=== PATIENT | female | born 1950 | race Caucasian/White ===

== ENCOUNTER → 2024-02-28 08:34 | Outpatient (REF) | payer MEDICARE, SELFPAY | LOC: RAD 08:34 | PROVIDERS: ATTENDING PHYSICIAN Family Medicine | DX: R11.0 Nausea (principal); R07.1 Chest pain on breathing | CPT/HCPCS: 71046; 76700 ==

== ENCOUNTER 2025-02-12 23:06 | Observation (INO) | payer MEDICARE, SELFPAY ==
[2025-02-12 21:52] VITALS: BMI 34.2
[2025-02-12 21:53] LABS: Glucose - Point of Care 99 mg/dl (70-99)
--- NOTE | 2025-02-12 21:59 | ED.CVA ---
History of Present Illness
General
Chief Complaint: CVA/TIA Symptoms
Source: patient
Exam Limitations: none
Time Seen by Provider: 02/12/25 21:59
Onset of Stroke Symptoms
Onset of symptoms known: Yes
Date of onset of symptoms: 02/12/25
Time of onset of symptoms: 21:00
Time pt last seen normal is known: Yes
Date last time pt seen normal: 02/12/25
Time last time pt seen normal: 21:00
History of Present Illness
History of Present Illness:
74-year-old female with history of hyperlipidemia on atorvastatin and baby aspirin presents with states about 1 hour prior to arrival the patient developed blurry vision slurred speech and dizziness. She does have a history of vertigo. The
symptoms were more pronounced at the onset however per the he states that she seems more improved at this time. She was cooking dinner when this started. She denies chest pain unilateral numbness or weakness. She was brought back from
triage and called a stroke alert out of triage.
Phy Exam
Physical Exam
Physical Exam:
General: Well-appearing female no acute respiratory distress
HEENT: Normocephalic face is symmetric tongue is midline uvula midline
Heart: Regular rate and rhythm
Lungs: Clear no wheeze
Neurologic exam: Alert and oriented. No drift on exam finger-nose intact good sensation upper and lower extremities. No dysarthria or aphasia. She does tend to repeat herself not knowing why she is here. Visual pittman intact.
Extremities: No cyanosis or edema
Skin: Warm no rash
Course
Orders/Labs/Results
Orders:
Orders
02/12/25 21:52
Electrocardiogram (*1) Urgent
Reason for Study: Other
Other Reason for Exam: Possible Stroke
Bedside Glucose- Treatment ONCE
Cardiac Monitoring- Treatment ONCE
EKG- Treatment ONCE
IV Insert/Care/Rem.- Treatment PRN
Vital Signs As Directed
Frequency: Other
Weight As Directed
Frequency: Once
Comment: ZERO STRETCHER SCALE FOR ACCURATE WEIGHT
O2 Therapy [RESP] Urgent
Titrate/Wean O2 to maintain O2 sat greater than (%): 93
Special Instructions: MAINTAIN CONTINUOUS O2 SATS > OR = 93%
02/12/25 21:56
CT HEAD STROKE ALERT W/o Cont Stat
Comment:
Reason For Exam: slurred speech, dizziness, unsteady gait
CT HEAD/NECK ANG STROKE ALERT Stat
Comment:
Reason For Exam: slurred speech, dizziness, unsteady gait
02/12/25 21:58
Alcohol Urgent
Complete Blood Count/With Diff Urgent
Comprehensive Metabolic Panel Urgent
PTT Urgent
Prothrombin Time Urgent
Troponin I Urgent
02/12/25 22:01
Add On- LAB Urgent
Tests Added?: alcohol
02/12/25 22:14
Ondansetron Injectable [Zofran] 4 mg .ROUTE .STK-MED ONE
02/12/25 22:19
Ondansetron Injectable [Zofran] 4 mg IV NOW STA
Abnormal Lab Results
02/12/25
21:58
MCH 32.0 H pg
(27.0-31.0)
MCHC 32.8 L g/dL
(33.0-37.0)
Absolute Monos (auto) 0.9 H 10^3/uL
(0.1-0.6)
Neutrophils % 38.7 L %
(42.2-75.2)
Monocytes % 11.7 H %
(1.7-9.3)
Chloride 112 H mmol/L
(98-107)
BUN 24 H mg/dl
(7-17)
Creatinine 0.5 L mg/dL
(0.6-1.0)
Glucose 100 H mg/dl
(70-99)
06/03/25 21:58
02/12/25 21:58
Vital Signs
Initial and Last Documented VS:
Initial Vital Signs
Temp Pulse Resp Pulse Ox
98.2 F 72 16 99
02/12/25 21:52 02/12/25 21:52 02/12/25 21:52 02/12/25 21:52
Last Documented Vital Signs
Temp Pulse Resp BP Pulse Ox
98.2 F 66 16 119/82 99
02/12/25 21:52 02/12/25 22:15 02/12/25 22:14 02/12/25 22:14 02/12/25 22:15
MDM/Problems Addressed
Differential Diagnosis Includes:
Abrupt change in mental status that included slurred speech dizziness confusion and subjective blurry vision. On exam there is no deficit. NIH would be scored as 0.
Consider TIA versus CVA versus electrolyte abnormality versus alcohol intoxication
Patient called a stroke alert at triage. Taken immediately to CT scan
*Critical Care Note
Total Time (30-74mins, 75-104mins- exclusive of procedures): Not Applicable
Update Note
Update Note:
Head CT and CTA of head and neck negative for acute finding. Patient received examined after CT. Still without objective deficit. Labs reviewed. Alcohol is 234 however patient no longer has slurred speech. Possible TIA. Will admit for further
workup
ED Attending Note
-
Portions of this chart may have been created with voice recognition software.� Occasional wrong word or��sound alike� substitutions may have occurred due to the inherent limitations of voice recognition software.
Discharge Plan
Departure
Patient Disposition: Admit
Date of Disposition: 02/12/25
Time of Disposition: 22:34
Presentation/result/management discussed w/ accepting MD/DO: Hospitalist
Discharge Problem:
Altered mental status
Prescriptions:
No Action
isosorbide mononitrate 30 MG tablet extended release 24 hr
30 mg PO DAILY
metoprolol succinate 25 MG tablet extended release 24 hr
25 mg PO DAILY
atorvastatin 40 MG tablet
40 mg PO DAILY
aspirin 81 MG tablet,chewable
81 mg PO DAILY
coenzyme S43-hjuskwe E [Co Q-10 (with Vit E)] 1 EACH capsule
1 tab PO DAILY
vit B complex 100 combo no.2 [B-100 Complex] 100 MG tablet extended release
1 tab PO DAILY
btellqvo-ixx-yfvx-FA-vit K-lut [Centrum Silver Women] 1 EACH tablet
1 ea PO DAILY
omega 7-vgw-rem-fish oil [[place]-3] 1 EACH capsule,delayed release(DR/EC)
1 ea PO MOWEFR
C,E,copper,zinc 95-xp4-ekd-faith 1 CAP capsule
1 cap PO DAILY
Interventions
Interventions:
*Risk Screen - Suicide Last Done: 02/12/25 21:52
*General Assessment Last Done: 02/12/25 21:52
*Neglect/Abuse Screening Last Done: 02/12/25 21:52
*ED COVID-19 Vaccine History Last Done: 02/12/25 21:52
ED- Pulmonary Assessment Last Done: 02/12/25 22:28
ED- Neurological Assessment Last Done: 02/12/25 22:28
ED- Cardiac Assessment Last Done: 02/12/25 22:28
Discharge Date and Time
Print Language: SAMI
[2025-02-12 22:00] VITALS: BP 100/82
[2025-02-12 22:10] LABS: % Basophils 0.5 % (0-2); % Immature Granulocytes 0.3 % (0-0.5); % Lymphocytes 42.8 % (20.5-51.1); % Monocytes 11.7 % (1.7-9.3); % Neutrophils 38.7 % (42.2-75.2); Absolute Eosinophils 0.5 10^3/uL (0-0.7); Absolute Lymphocytes 3.4 10^3/uL (1.2-3.4); Absolute Monocytes 0.9 10^3/uL (0.1-0.6); Absolute Neutrophils 3.1 10^3/uL (1.4-6.5); Hematocrit 41.1 % (37.0-47.0); Hemoglobin 13.5 g/dL (12.0-16.0); Mean Corp Hgb Conc. 32.8 g/dL (33.0-37.0); Mean Corpuscular Volume 97.4 fL (81.0-99.0); Mean Platelet Volume 9.2 fL (7.4-10.4); Nucleated Red Blood Cells % 0 %; Platelet Count 277 10^3/uL (130-400); Red Blood Cell Count 4.22 10^6/uL (4.20-5.40); Red Cell Dist. Width 12.6 % (11.5-14.5)
[2025-02-12 22:14] VITALS: BP 119/82
[2025-02-12 22:18] LABS: INR 0.88; PT 12.3 Sec (11.4-14.6)
[2025-02-12 22:19] LABS: APTT 30.6 Sec (23.4-35.0)
[2025-02-12] MEDS: ZOFRAN 4 MG IV (22:22)
[2025-02-12 22:23] LABS: ALT (SGPT) 31 U/L (0-35); AST (SGOT) 28 U/L (14-36); Albumin 4.7 g/dl (3.5-5.0); Alcohol 234 mg/dl; Alkaline Phosphatase 76 U/L (38-126); Blood Urea Nitrogen 24 mg/dl (7-17); Calcium 9.2 mg/dl (8.4-10.2); Carbon Dioxide 23 mmol/L (22-30); Chloride 112 mmol/L (98-107); Estimated Creatinine Clearance 86 ml/min; Glucose 100 mg/dl (70-99); Potassium 4.2 mmol/L (3.5-5.1); Sodium 143 mmol/L (135-145); Total Bilirubin 0.3 mg/dl (0.2-1.3); Total Protein 6.7 g/dl (6.3-8.2); eGFR > 60.00
[2025-02-12 22:34] LABS: Troponin I < 0.012 ng/ml
--- NOTE | 2025-02-12 22:57 | HPS.HSE ---
Family Physician
-
Family Physician: Fredis Molina
Chief Complaint
-
blurry vision, slurred speech
History of Present Illness
74yo F with PMHX of vertigo, HLD, fibroadenoma of the breast came since her was concerned with her being little more confused then usual, blurry vision and slurred speech. Also has acute on chronic dizziness. Patient was found with elevated
alcohol level of 234, but says that she is drinking 2 Oz of wiskey nightly only. In ED called stroke alert, CTA showed no LVO or clinically significant carotid stenosis.
Medical History
Past Medical History
Past Medical History: Reports Other
Additional Past Medical History:
See HPI
Past Surgical History: Reports None
Social History
Tobacco: Non-smoker
Alcohol: Daily
Drug: None
Family History
Family History: Not pertinent
Allergies / Home Medications
Allergies reflects when Allergies were last updated in [employer].
Home Medications with original date entered in [employer]
Allergy/Medication List:
Allergies
Allergy/AdvReac Type Severity Reaction Status Date / Time
latex Allergy Severe Shortness Verified 01/12/17 07:36
of Breath
Home Medications
aspirin 81 mg chewable tablet 81 mg PO DAILY 01/12/17
atorvastatin 40 mg tablet 40 mg PO DAILY 01/12/17
coenzyme G11-oejovsw E 100 mg-5 unit capsule (Co Q-10 (with Vit E)) 1 tab PO DAILY 01/12/17
isosorbide mononitrate 30 mg tablet,extended release 24 hr 30 mg PO DAILY 01/12/17
metoprolol succinate 25 mg tablet,extended release 24 hr 25 mg PO DAILY 01/12/17
fvxkgcho-xsan-cylm 8 mg-folic 400 mcg-K 50 mcg-lutein 300 mcg tablet (Centrum Silver Women) 1 ea PO DAILY 01/12/17
omega 3 350 mg-dha 235 mg-epa 90 mg-fish oil 597 mg capsule,delay rel ([place]-3) 1 ea PO MOWEFR 01/12/17
vit B complex 100 combo no.2 100 mg tablet,extended release (B-100 Complex ER) 1 tab PO DAILY 01/12/17
vit C,E,copper,zinc-omega3 250 mg-lutein 5 mg-zeaxanthin 1 mg capsule 1 cap PO DAILY 01/12/17
Review of Systems
-
A 12 point ROS was completed and negative except as noted: Yes
Constitutional: Reports No Symptoms
Physical Exam
Vital Signs
Vital Signs
Temp Pulse Resp BP Pulse Ox
98.2 F 66 16 119/82 99
02/12/25 21:52 02/12/25 22:15 02/12/25 22:14 02/12/25 22:14 02/12/25 22:15
Physical Exam
General: Well Developed, Well Nourished and No Apparent Distress
HEENT: NormoCephalic, Anicteric and Moist mucous membranes
Respiratory: Clear; No Wheezes or Crackles
Cardiac: S1/S2 and Regular Rhythm; No Murmur
GI: Soft, Non Tender and Non Distended
Genito-urinary: Clear Urine
Musculoskeletal: No Clubbing, No Cyanosis and No Edema
Skin: Warm; No Dry or Jaundice
Neuro: Awake, Alert, Oriented, AO x 3 and Slurred Speech
Psych: Calm
Laboratory Results
-
02/12/25 21:58
02/12/25 21:58
Laboratory Results
PT 12.3 Sec (11.4-14.6) 02/12/25 21:58
INR 0.88 02/12/25 21:58
APTT 30.6 Sec (23.4-35.0) 02/12/25 21:58
Total Bilirubin 0.3 mg/dl (0.2-1.3) 02/12/25 21:58
AST 28 U/L (14-36) 02/12/25 21:58
ALT 31 U/L (0-35) 02/12/25 21:58
Alkaline Phosphatase 76 U/L (38-126) 02/12/25 21:58
Troponin I < 0.012 ng/ml 02/12/25 21:58
Data Reviewed
-
CT Scan: Report Reviewed by me
Lab Data: Labs Reviewed by me
Impression/Plan
-
A/P:
#Blurry vision, dizziness, slurred speech
most likely 2/2 alcohol intake
Defer further imaging to Neurologist, meanwhile reasonable to cont ASA, statin, telemetry and neurochecks
TSH, lipids, HgbA1c
#Daily alcohol use, concern for abuse
Thiamine/Folate
MSAS protocol
counseled on abstinence
Drug screen
#ASCVD
#Essential HTN
#HLD
cont home meds
DVT ppx SCDs
Full code - as per patient
I have spen at least 57min admitting the patient
[2025-02-12 23:00] VITALS: BP 134/114
[2025-02-13] MEDS: LR 1000 IV (00:05)
[2025-02-13 00:45] VITALS: BP 153/81; BMI 33.2
--- NOTE | 2025-02-13 01:00 | PTCARENOTE ---
Received patient from ED via stretcher. Patient ambulated from stretcher to bed x1 assist. AAOx3, denies pain. Oriented patient to room and placed call busch within reach.
[2025-02-13 02:11] LABS: INR 0.94; PT 12.9 Sec (11.4-14.6)
[2025-02-13 02:22] LABS: Magnesium 2.4 mg/dl (1.6-2.3)
[2025-02-13 03:30] VITALS: BP 142/76
[2025-02-13 05:50] LABS: Urine Albumin 1+ (Neg - Trace); Urine Bilirubin Negative (Negative); Urine Character Clear (Clear); Urine Color Yellow; Urine Glucose Negative (Negative); Urine Ketone Negative (Negative); Urine Leukocyte Negative (Negative); Urine Nitrite Negative (Negative); Urine Occult Blood Negative (Negative); Urine Specific Gravity 1.015 (<1.030); Urine Urobilinogen Negative (Neg - 1+)
[2025-02-13 06:21] LABS: Urine Red Blood Cell None Seen /HPF (0-2)
[2025-02-13 06:22] LABS: Amphetamines Negative (Negative); Barbiturates Negative (Negative); Benzodiazepines Negative (Negative); Buprenorphine Negative (Negative); Cocaine Negative (Negative); Marijuana Negative (Negative); Methadone Negative (Negative); Methamphetamines Negative (Negative); Opiates Negative (Negative); Phencyclidine Negative (Negative); Tricyclic Antidepressants Negative (Negative)
[2025-02-13 07:00] VITALS: BP 175/81
[2025-02-13 07:24] LABS: HDL Cholesterol 49 mg/dl; LDL Cholesterol, Calculated 46 mg/dl; Total Cholesterol 117 mg/dl (50-199); Triglyceride 110 mg/dl (10-149); Very Low Density Lipoprotein 22 mg/dl (0-30)
[2025-02-13] MEDS: THIAMINE INJECTION 200 MG IV (08:15)
[2025-02-13] MEDS: LIPITOR 40 MG PO (08:16)
[2025-02-13] MEDS: TOPROL XL 25 MG PO (08:16)
[2025-02-13] MEDS: FOLVITE 1 MG PO (08:16)
[2025-02-13] MEDS: LOW STRENGTH ASPIRIN 81 MG PO (08:16)
[2025-02-13] MEDS: IMDUR (EXTENDED RELEASE) 30 MG PO (08:16)
[2025-02-13 08:45] LABS: Glycohemoglobin (HgbA1c) 5.4 % (4.0-5.6)
[2025-02-13 09:20] VITALS: BP 167/90; PULSE 74; O2SAT 97
--- NOTE | 2025-02-13 10:08 | CM ---
Addendum entered by Jamila Dowell 02/13/25 12:50:
Patient for d/c today
No CM needs at this time
Original Note:
Patient seen bedside, initial assessment completed. Patient is a 74yo F with PMHX of vertigo, HLD, fibroadenoma of the breast came since her was concerned with her being little more confused then usual, blurry vision and slurred speech. Also
has acute on chronic dizziness.
Patient resides w/ spouse in a 4STH- [address] small step into the home from the [facility]. Patient is primarily independent but does have a cane that is used as needed as patient is a knee replacement candidate and is limited in mobility sometimes. Denies
SNF/HC hx.
Address, point of contact and insurance verified
PCP: King Molina
Pharmacy: [facility]
Patient admitted obs. JACOME form verbally reviewed, copy provided, copy on chart
CM consulted for substance counseling. Discussed w/ patient who stated she and spouse drink socially and after dinner they'll have a drink daily but there are no concerns of abuse or interest in support/resources.
Plan: Home, no needs
--- NOTE | 2025-02-13 10:55 | PTOTSP ---
Speech Language Pathology
Pt seen for clinical bedside swallow evaluation. P.O. trials of regular solids and thin liquids provided. Adequate mastication, bolus formation, and A-P transit noted with no oral residue. No overt signs of aspiration. No dysarthria noted with
adequate diadochokinetic (DDK) rates.
Recommend:
(1) Continue regular solids/thin liquids
(2) General aspiration precautions
(3) Meds as tolerated
(4) WOOD TURNER to follow up if stroke confirmed. If imaging negative, will sign off
[2025-02-13 11:00] VITALS: BP 111/54; BP 167/90; PULSE 76; O2SAT 97
--- NOTE | 2025-02-13 12:46 | W.DS.TRANS ---
DC Summary - Proof Inspector
-
Discharge Instructions:
Discharge Diagnosis/Procedures Metabolic encephalopathy
Diet Regular
Instructions:
Stand-Alone Forms:
Changes to Home Medications: No
Discharge Medications:
DC Medications w/original date entered in [employer]
aspirin 81 mg chewable tablet 81 mg PO DAILY Blood Clot Prevention/Tx 01/12/17
atorvastatin 40 mg tablet 40 mg PO DAILY High Cholesterol 01/12/17
coenzyme H76-isdnjef E 100 mg-5 unit capsule (Co Q-10 (with Vit E)) 1 tab PO DAILY Supplement 01/12/17
isosorbide mononitrate 30 mg tablet,extended release 24 hr 30 mg PO DAILY Heart Disease/Condition 01/12/17
metoprolol succinate 25 mg tablet,extended release 24 hr 25 mg PO DAILY Blood Pressure 01/12/17
kbmusurc-gxbr-qyof 8 mg-folic 400 mcg-K 50 mcg-lutein 300 mcg tablet (Centrum Silver Women) 1 ea PO DAILY Supplement 01/12/17
omega 3 350 mg-dha 235 mg-epa 90 mg-fish oil 597 mg capsule,delay rel ([place]-3) 1 ea PO MOWEFR Supplement 01/12/17
vit B complex 100 combo no.2 100 mg tablet,extended release (B-100 Complex ER) 1 tab PO DAILY Supplement 01/12/17
vit C,E,copper,zinc-omega3 250 mg-lutein 5 mg-zeaxanthin 1 mg capsule 1 cap PO DAILY Supplement 01/12/17
Home Medication Changes
Pending Results: No
--- NOTE | 2025-02-13 15:21 | CON.NEURO ---
Neuro Assessment/Plan
Assessment
agree alcohol intoxication, resolved
no confabulations to suggest Wernicke/Korsakoff
doesn't want help for presumed alcoholism
ok to d/c
Consultation
Order
Date of Consultation: 02/13/25
Requesting Provider: Gary Peacock
Reason for Consult: intoxication
Subjective/Objective
Subjective Data
Date of Service: February 13, 2025
74yo F with PMHX of vertigo, HLD, fibroadenoma of the breast came since her was concerned with her being little more confused then usual, blurry vision and slurred speech. Also has acute on chronic dizziness. Patient was found with elevated
alcohol level of 234, but says that she is drinking 2 Oz of wiskey nightly only. In ED called stroke alert, CTA showed no LVO or clinically significant carotid stenosis.
this morning she told me she was cooking dinner, her gave her a mary jo, she felt dizzy/slurred speech and was surprised when i told her her alcohol level
Objective Data
Vital Signs
Temp Pulse Resp BP Pulse Ox
36.8 C 70 16 111/54 95
02/13/25 11:00 02/13/25 11:00 02/13/25 11:00 02/13/25 11:00 02/13/25 11:41
Lab Results
02/12/25 21:58
02/12/25 21:58
PT 12.9 Sec (11.4-14.6) 02/13/25 01:41
INR 0.94 02/13/25 01:41
APTT 31.0 Sec (23.4-35.0) 02/13/25 01:41
Sodium 143 mmol/L (135-145) 02/12/25 21:58
Potassium 4.2 mmol/L (3.5-5.1) 02/12/25 21:58
BUN 24 mg/dl (7-17) H 02/12/25 21:58
Glucose 100 mg/dl (70-99) H 02/12/25 21:58
Calcium 9.2 mg/dl (8.4-10.2) 02/12/25 21:58
Phosphorus 4.0 mg/dl (2.5-4.5) 02/13/25 01:41
LDL Cholesterol, Calc 46 mg/dl 02/13/25 06:21
Ur Buprenorphine Negative (Negative) 02/13/25 05:25
Patient Allergies
latex Allergy (Verified 02/12/25 23:04)
Shortness of Breath
Physical Exam
-
AAOx3, speech clear, language intact, no confabulation
VFF, EOMI, face symmetric
full strength b/l UE/LE
sensation intact to touch/temp
Medications
-
Home Medications
�Medication �Instructions �Recorded
aspirin 81 mg chewable tablet 81 mg PO DAILY Blood Clot 01/12/17
Prevention/Tx
atorvastatin 40 mg tablet 40 mg PO DAILY High Cholesterol 01/12/17
coenzyme R97-pjmzusm E 100 mg-5 1 tab PO DAILY Supplement 01/12/17
unit capsule (Co Q-10 (with Vit E))
isosorbide mononitrate 30 mg 30 mg PO DAILY Heart 01/12/17
tablet,extended release 24 hr Disease/Condition
metoprolol succinate 25 mg 25 mg PO DAILY Blood Pressure 01/12/17
tablet,extended release 24 hr
tuxrewtn-unsg-xrev 8 mg-folic 400 1 ea PO DAILY Supplement 01/12/17
mcg-K 50 mcg-lutein 300 mcg tablet
(Centrum Silver Women)
omega 3 350 mg-dha 235 mg-epa 90 1 ea PO MOWEFR Supplement 01/12/17
mg-fish oil 597 mg capsule,delay
rel ([place]-3)
vit B complex 100 combo no.2 100 1 tab PO DAILY Supplement 01/12/17
mg tablet,extended release (B-100
Complex ER)
vit C,E,copper,zinc-omega3 250 1 cap PO DAILY Supplement 01/12/17
mg-lutein 5 mg-zeaxanthin 1 mg
capsule
[2025-02-14 19:46] LABS: Hepatitis C Antibody Negative (Negative)
== END 2025-02-13 14:25 | disposition home or self-care (01) ==
LOC: 4 EAST ACU 23:06
PROVIDERS: ADMITTING PHYSICIAN Internal Medicine; ATTENDING PHYSICIAN Internal Medicine; CONSULT PHYSICIAN Psychiatry & Neurology Clinical Neurophysiology; EMERGENCY PHYSICIAN Student in an Organized Health Care Education/Training Program; FAMILY PHYSICIAN Family Medicine
DX: G92.8 Other toxic encephalopathy (principal); R42 Dizziness and giddiness; R47.81 Slurred speech; H53.8 Other visual disturbances; E78.5 Hyperlipidemia, unspecified; I25.10 Atherosclerotic heart disease of native coronary artery without angina pectoris; I10 Essential (primary) hypertension; F10.129 Alcohol abuse with intoxication, unspecified; Z79.899 Other long term (current) drug therapy
CPT/HCPCS: 70450; 70496; 70498; 80053; 80061; 80306; 81003; 81015; 82077; 82962; 83036; 83735; 84100; 84443; 84484; 85025; 85610; 85730; 86803; 92610; 93005; 96361; 96374; 97116; 97163; 97166; 99285; G0378; Q9967